=== PATIENT | male | born 1975 | race Two or more races ===

== ENCOUNTER 2025-02-03 23:00 | Inpatient (IN) | payer OTHER ==
[~2025-02-03] VITALS: Ht 170.2 cm; Wt 74.8 kg
[2025-02-03 23:00] VITALS: BP 98/44; PULSE 77; RESP 16; O2SAT 100
[2025-02-04] VITALS (85 sets, daily range): BP systolic 100–171; BP diastolic 54–93; PULSE 63–116; RESP 16; TEMP 35.1392–36.7; O2SAT 97–100
[2025-02-04] MEDS: DEXTROSE 50% WATER 50ML SYRINGE IV ONE ×2 (00:48→14:00)
[2025-02-04] MEDS ORDERED: DEXTROSE 50% WATER 50ML SYRINGE IV PRN (01:15)
[2025-02-04] MEDS: DEXTROSE 50% WATER 50ML SYRINGE IV PRN (01:44)
[2025-02-04 02:47] LABS: BG BASE EXCESS -1.5 mmol/L (-2.0-3.0); BG CARBOXYHEMOGLOBIN 1.1 % (0.5-1.5); BG DEOXYHEMOGLOBIN 1.4 % (0.0-5.0); BG FRACTION INSPIRED OXYGEN 40; BG HCO3 ACT 23.3 mmol/L (21.0-28.0); BG METHEMOGLOBIN 0.0 % (0.5-1.5); BG OXYGEN SATURATION 98.6 % (94.0-98.0); BG OXYHEMOGLOBIN 97.5 % (94.0-98.0); BG PCO2 39.7 mmHg (35.0-48.0); BG PEEP (cmH2O) 5.0 cmH2O; BG PH 7.387 (7.350-7.450); BG PO2 138.1 mmHg (83.0-108.0); BG TIDAL VOLUME(mL) 500.0 mL; BG TOTAL HEMOGLOBIN 12.9 g/dL (13.5-17.5); BG VENT MODE VENT - AC; BG VENT RATE 16.0 set
[2025-02-04] MEDS: VASOPRESSIN 20 UNIT in SODIUM CHLORIDE 0.9% 99 ML IV SCH (03:02)
[2025-02-04] MEDS: SODIUM CHLORIDE 0.9% IV NR (03:55)
[2025-02-04] MEDS: THIAMINE HCL IV NR (03:55)
[2025-02-04 04:13] LABS: INR 1.3
[2025-02-04] MEDS: PIPERACILLIN/TAZO 3.375G/50ML 50 ML IV SCH (04:13)
[2025-02-04 04:14] LABS: CREATINE KINASE MB FRACTION 1.8 ng/mL (0.5-3.6); TROPONIN I HIGH SENSITIVITY 40 ng/L (3.0-53); UREA NITROGEN BLOOD 96 mg/dL (9-23)
[2025-02-04 04:15] LABS: LACTATE DEHYDROGENASE 179 IU/L (120-246)
[2025-02-04 04:16] LABS: ASPARTATE AMINOTRANSFERASE 10 IU/L (<34); BILIRUBIN DIRECT 0.6 mg/dL (<=3.0); BILIRUBIN TOTAL 0.8 mg/dL (0.1-1.0); PHOSPHORUS 5.9 mg/dL (2.5-4.9); PROTEIN TOTAL 5.5 g/dL (6.0-8.3)
[2025-02-04] MEDS: METHYLPREDNISOLONE SOD SUCC 2,000 MG in DEXT 5% WATER 100 ML IV NR (04:22)
[2025-02-04] MEDS: DEXT 10% WATER 1,000 ML IV SCH (04:22)
[2025-02-04 05:38] LABS: CREATININE 12.0 mg/dL (0.6-1.3)
[2025-02-04] MEDS: DEXTROSE 20% WATER 500 ML IV SCH (06:00)
[2025-02-04] MEDS: ALBUMIN HUMAN 25GM/500ML (5%) IV NR (06:00)
[2025-02-04] MEDS: SODIUM ZIRCONIUM CYCLOSILICATE 10GM/PACKET NG SCH (06:00)
[2025-02-04] MEDS: BLOOD SUGAR DIAGNOSTIC STRIP TEST SCH (06:00)
[2025-02-04] MEDS: FAMOTIDINE 20MG/2ML VIAL IV SCH (08:06)
[2025-02-04 10:00] LABS: BG BASE EXCESS -0.9 mmol/L (-2.0-3.0); BG CARBOXYHEMOGLOBIN 0.8 % (0.5-1.5); BG DEOXYHEMOGLOBIN 2.3 % (0.0-5.0); BG FRACTION INSPIRED OXYGEN 40; BG HCO3 ACT 23.8 mmol/L (21.0-28.0); BG METHEMOGLOBIN 0.3 % (0.5-1.5); BG OXYGEN SATURATION 97.7 % (94.0-98.0); BG OXYHEMOGLOBIN 96.6 % (94.0-98.0); BG PCO2 39.7 mmHg (35.0-48.0); BG PEEP (cmH2O) 5.0 cmH2O; BG PH 7.396 (7.350-7.450); BG PO2 106.1 mmHg (83.0-108.0); BG SAMPLE SITE ALINE; BG TIDAL VOLUME(mL) 500.0 mL; BG TOTAL HEMOGLOBIN 8.1 g/dL (13.5-17.5); BG TOTAL RESPIRATORY RATE 16 b/min; BG VENT MODE VENT - AC; BG VENT RATE 16.0 set
[2025-02-04] MEDS: DEXTROSE 50% WATER 50ML SYRINGE IV SCH ×3 (10:30→19:40)
[2025-02-04] MEDS: INSULIN LISPRO 100 UNITS/ML SUBCUT SCH ×2 (10:30→19:40)
[2025-02-04] MEDS: THIAMINE HCL 100 MG in SODIUM CHLORIDE 0.9% 49 ML IV SCH (10:40)
[2025-02-04] MEDS: METHYLPREDNISOLONE SOD SUCC 500 MG in DEXT 5% WATER 100 ML IV SCH (11:38)
[2025-02-04 11:55] LABS: HEMATOCRIT. 22.4 % (42.0-52.0); HEMOGLOBIN. 7.5 g/dL (14.0-18.0); MEAN PLATELET VOLUME 10.0 fl (7.4-10.4); PLATELET 87 x1000/uL (130-400); RED BLOOD CELL COUNT 2.78 mill/uL (4.7-6.1); RED CELL DISTRIBUTION WIDTH 20.8 % (11.6-14.6)
[2025-02-04] MEDS ORDERED: THIAMINE HCL 100 MG in SODIUM CHLORIDE 0.9% 49 ML IV SCH (12:00)
[2025-02-04] MEDS ORDERED: METHYLPREDNISOLONE SOD SUCC 500 MG in DEXT 5% WATER 100 ML IV SCH (12:00)
[2025-02-04 12:10] LABS: CREATINE KINASE MB FRACTION 2.2 ng/mL (0.5-3.6); INR 1.3
[2025-02-04 12:11] LABS: TROPONIN I HIGH SENSITIVITY 26 ng/L (3.0-53); UREA NITROGEN BLOOD 86 mg/dL (9-23)
[2025-02-04 12:12] LABS: ASPARTATE AMINOTRANSFERASE 14 IU/L (<34); BILIRUBIN TOTAL 1.5 mg/dL (0.1-1.0); LACTATE DEHYDROGENASE 297 IU/L (120-246)
[2025-02-04 12:13] LABS: BILIRUBIN DIRECT 0.9 mg/dL (<=3.0); PHOSPHORUS 6.2 mg/dL (2.5-4.9); PROTEIN TOTAL 6.2 g/dL (6.0-8.3)
[2025-02-04 12:14] LABS: BG BASE EXCESS -2.7 mmol/L (-2.0-3.0); BG CARBOXYHEMOGLOBIN 0.6 % (0.5-1.5); BG DEOXYHEMOGLOBIN 3.2 % (0.0-5.0); BG FRACTION INSPIRED OXYGEN 40; BG HCO3 ACT 23.7 mmol/L (21.0-28.0); BG METHEMOGLOBIN 0.3 % (0.5-1.5); BG OXYGEN SATURATION 96.8 % (94.0-98.0); BG OXYHEMOGLOBIN 95.9 % (94.0-98.0); BG PCO2 49.0 mmHg (35.0-48.0); BG PEEP (cmH2O) 5.0 cmH2O; BG PH 7.303 (7.350-7.450); BG PO2 101.8 mmHg (83.0-108.0); BG SAMPLE SITE ALINE; BG TIDAL VOLUME(mL) 500.0 mL; BG TOTAL HEMOGLOBIN 8.9 g/dL (13.5-17.5); BG VENT MODE VENT - AC; BG VENT RATE 16.0 set
[2025-02-04 12:16] LABS: CREATININE 11.2 mg/dL (0.6-1.3)
[2025-02-04] MEDS ORDERED: CALCIUM GLUCONATE 100MG/ML 10ML VIAL IV NR (13:45)
[2025-02-04] MEDS ORDERED: INSULIN REGULAR (HUMULIN R) 1000UNITS/10ML VIAL IV SCH (13:45)
[2025-02-04 13:48] LABS: BAND% 14.0 % (1.0-6.0); LYMPHOCYTES % MANUAL 5.0 % (20.0-50.0); MONOCYTES % MANUAL 3.0 % (2.0-8.0); NEUTROPHILS % MANUAL 78.0 % (45.0-75.0); PLATELET ESTIMATE DECREASED
[2025-02-04] MEDS: SODIUM BICARBONATE 8.4% 50MEQ/50ML SYR IV SCH (13:59)
[2025-02-04] MEDS ORDERED: FUROSEMIDE 40MG/4ML VIAL IV SCH (14:00)
[2025-02-04] MEDS: SODIUM BICARBONATE 8.4% 50MEQ/50ML SYR IV NR (14:09)
[2025-02-04] MEDS: INSULIN LISPRO 100 UNITS/ML SUBCUT NR (14:14)
[2025-02-04] MEDS ORDERED: ALBUTEROL (0.5%) 2.5MG/0.5ML NEB HHN SCH (14:30)
[2025-02-04] MEDS: AMIODARONE HCL 50MG/ML 3ML VIAL IV ONE (14:34)
[2025-02-04] MEDS: CALCIUM CHLORIDE 1GM/10ML SYR IV NR (14:34)
[2025-02-04] MEDS: INSULIN REGULAR (HUMULIN R) 1000UNITS/10ML VIAL IV NR (14:35)
[2025-02-04 14:54] LABS: BG BASE EXCESS -4.3 mmol/L (-2.0-3.0); BG CARBOXYHEMOGLOBIN 1.8 % (0.5-1.5); BG DEOXYHEMOGLOBIN 3.1 % (0.0-5.0); BG FRACTION INSPIRED OXYGEN 40; BG HCO3 ACT 22.3 mmol/L (21.0-28.0); BG METHEMOGLOBIN 0.1 % (0.5-1.5); BG OXYGEN SATURATION 96.8 % (94.0-98.0); BG OXYHEMOGLOBIN 95.0 % (94.0-98.0); BG PCO2 49.0 mmHg (35.0-48.0); BG PEEP (cmH2O) 5.0 cmH2O; BG PH 7.275 (7.350-7.450); BG PO2 105.5 mmHg (83.0-108.0); BG SAMPLE SITE ALINE; BG TIDAL VOLUME(mL) 500.0 mL; BG TOTAL HEMOGLOBIN 7.1 g/dL (13.5-17.5); BG TOTAL RESPIRATORY RATE 16 b/min; BG VENT MODE VENT - AC; BG VENT RATE 16.0 set
[2025-02-04 15:26] LABS: MEAN PLATELET VOLUME 10.0 fl (7.4-10.4); PLATELET 90 x1000/uL (130-400); RED BLOOD CELL COUNT 2.61 mill/uL (4.7-6.1); RED CELL DISTRIBUTION WIDTH 21.0 % (11.6-14.6)
[2025-02-04 15:34] LABS: INR 1.3; UREA NITROGEN BLOOD 95 mg/dL (9-23)
[2025-02-04 15:36] LABS: ASPARTATE AMINOTRANSFERASE 13 IU/L (<34); BILIRUBIN DIRECT 0.8 mg/dL (<=3.0); BILIRUBIN TOTAL 1.2 mg/dL (0.1-1.0); PHOSPHORUS 7.1 mg/dL (2.5-4.9); PROTEIN TOTAL 5.9 g/dL (6.0-8.3)
[2025-02-04 15:41] LABS: CREATININE 11.4 mg/dL (0.6-1.3)
[2025-02-04 15:46] LABS: HEMATOCRIT. 21.0 % (42.0-52.0)
[2025-02-04 15:48] LABS: HEMOGLOBIN. 7.1 g/dL (14.0-18.0)
[2025-02-04] MEDS: SODIUM POLYSTYRENE SULFONATE 15 G/60 ML BOT PO PRN (16:12)
[2025-02-04 16:45] LABS: BAND% 9.0 % (1.0-6.0); LYMPHOCYTES % MANUAL 4.0 % (20.0-50.0); MONOCYTES % MANUAL 3.0 % (2.0-8.0); NEUTROPHILS % MANUAL 84.0 % (45.0-75.0); PLATELET ESTIMATE DECREASED
[2025-02-04] MEDS ORDERED: SODIUM ZIRCONIUM CYCLOSILICATE 10GM/PACKET NG SCH (18:00)
[2025-02-04 18:23] LABS: HEMATOCRIT. 21.8 % (42.0-52.0); HEMOGLOBIN. 7.2 g/dL (14.0-18.0); MEAN PLATELET VOLUME 9.9 fl (7.4-10.4); PLATELET 120 x1000/uL (130-400); RED BLOOD CELL COUNT 2.72 mill/uL (4.7-6.1); RED CELL DISTRIBUTION WIDTH 21.0 % (11.6-14.6)
[2025-02-04 18:30] LABS: CREATINE KINASE MB FRACTION 8.0 ng/mL (0.5-3.6); TROPONIN I HIGH SENSITIVITY 22 ng/L (3.0-53); UREA NITROGEN BLOOD 96 mg/dL (9-23)
[2025-02-04 18:31] LABS: ASPARTATE AMINOTRANSFERASE 23 IU/L (<34); LACTATE DEHYDROGENASE 359 IU/L (120-246)
[2025-02-04 18:32] LABS: BG BASE EXCESS -1.5 mmol/L (-2.0-3.0); BG CARBOXYHEMOGLOBIN 1.5 % (0.5-1.5); BG DEOXYHEMOGLOBIN 4.1 % (0.0-5.0); BG FRACTION INSPIRED OXYGEN 40; BG HCO3 ACT 23.4 mmol/L (21.0-28.0); BG METHEMOGLOBIN 0.1 % (0.5-1.5); BG OXYGEN SATURATION 95.8 % (94.0-98.0); BG OXYHEMOGLOBIN 94.3 % (94.0-98.0); BG PCO2 40.3 mmHg (35.0-48.0); BG PEEP (cmH2O) 5.0 cmH2O; BG PH 7.382 (7.350-7.450); BG PO2 84.1 mmHg (83.0-108.0); BG SAMPLE SITE ALINE; BG TIDAL VOLUME(mL) 500.0 mL; BG TOTAL HEMOGLOBIN 7.6 g/dL (13.5-17.5); BG VENT MODE VENT - AC; BG VENT RATE 16.0 set
[2025-02-04 18:32] LABS: BILIRUBIN DIRECT 0.7 mg/dL (<=3.0); BILIRUBIN TOTAL 0.9 mg/dL (0.1-1.0); PHOSPHORUS 6.5 mg/dL (2.5-4.9); PROTEIN TOTAL 6.3 g/dL (6.0-8.3)
[2025-02-04 19:04] LABS: BAND% 4.0 % (1.0-6.0); EOSINOPHILS % MANUAL 1.0 % (0.0-5.0); LYMPHOCYTES % MANUAL 5.0 % (20.0-50.0); MONOCYTES % MANUAL 4.0 % (2.0-8.0); NEUTROPHILS % MANUAL 86.0 % (45.0-75.0); PLATELET ESTIMATE DECREASED
[2025-02-04 19:18] LABS: CREATININE 12.0 mg/dL (0.6-1.3)
[2025-02-04] MEDS ORDERED: GLYCOPYRROLATE 0.2 MG/ML 2ML VIAL ONE (21:50)
[2025-02-04] MEDS ORDERED: FENTANYL CITRATE/PF 50MCG/ML 2ML VIAL ONE (21:54)
[2025-02-04] MEDS ORDERED: EPINEPHRINE 1:1000 1 MG/ML AMP ONE (21:57)
== END 2025-02-04 21:00 | DRG 950 ==
LOC: MICUSO 23:00
PROVIDERS: ADMIT Internal Medicine
PROC: 5A1935Z Respiratory Ventilation, Less than 24 Consecutive Hours (ICD-10-PCS; 2025-02-03)
PROC: 0FT00ZZ Resection of Liver, Open Approach (ICD-10-PCS; principal; 2025-02-04)
PROC: 30233N1 Transfusion of Nonautologous Red Blood Cells into Peripheral Vein, Percutaneous Approach (ICD-10-PCS; 2025-02-04)
CPT/HCPCS: 36415; 36600; 71045; 76700; 80053; 82150; 82248; 82375; 82553; 82805; 82962; 83615; 83735; 84100; 84484; 85025; 86850; 86900; 86920; 87070; 87077; 87186; 88307; 88331; 93005; 94002; 94070; J0282; J1308; J1815; J2543; J2930; J3010; J3411; J3490; J7050; J7060; P9016; P9041